=== PATIENT | male | born 1955 | race Caucasian/White ===

== ENCOUNTER 2020-04-20 02:42 | Inpatient (IN) | payer OTHER ==
[~2020-04-20] VITALS: Ht 180.3 cm; Wt 74.8 kg
[2020-04-20 02:53] VITALS: BP 131/65
[2020-04-20 03:04] LABS: ABSOLUTE BASOPHILS 0.1 thou/uL (0.0-0.2); ABSOLUTE EOSINOPHILS 0.1 thou/uL (0.0-0.7); ABSOLUTE LYMPHOCYTES 1.5 thou/uL (0.8-5.3); ABSOLUTE MONOCYTES 1.1 thou/uL (0.0-1.2); ABSOLUTE NEUTROPHILS 13.2 thou/uL (1.6-8.1); BASOPHILS 0.6 %; EOSINOPHILS 0.9 %; HEMATOCRIT 45.4 % (42.0-52.0); HEMOGLOBIN 15.2 gm/dL (14.0-18.0); LYMPHOCYTES 9.6 %; MCH 32.7 pg (26.0-34.0); MCHC 33.6 g/dL (28.0-37.0); MCV 97.6 fL (80.0-100.0); MONOCYTES 6.8 %; MPV 8.8 fl. (7.2-11.1); NUCLEATED RBCS 0 /100WBC; PLATELET COUNT* 248 thou/uL (150-400); POLYS 82.1 %; RBC 4.65 mil/uL (4.50-6.00); RDW-CV 13.5 % (10.5-14.5)
[2020-04-20 03:12] LABS: CALCIUM 9.7 mg/dL (8.5-10.1); CREATININE 1.4 mg/dL (0.6-1.3); POTASSIUM 4.3 mmol/L (3.5-5.1)
[2020-04-20 03:17] LABS: ALBUMIN 4.2 g/dL (3.4-5.0); TOTAL BILIRUBIN 0.5 mg/dL (<0.1-1.0); TOTAL PROTEIN 8.2 g/dL (6.4-8.2)
[2020-04-20 04:50] LABS: URINE BILIRUBIN NEGATIVE (Negative); URINE BLOOD TRACE (Negative); URINE CLARITY CLEAR; URINE COLOR YELLOW; URINE GLUCOSE-RANDOM NEGATIVE (Negative); URINE KETONES TRACE (Negative); URINE LEUKOCYTES-REFLEX NEGATIVE (Negative); URINE NITRITE-REFLEX NEGATIVE (Negative); URINE PROTEIN NEGATIVE (Negative); URINE SPECIFIC GRAVITY <= 1.005 (1.005-1.030)
[2020-04-20 09:37] VITALS: BP 94/49
[2020-04-20 10:20] VITALS: BP 94/49
--- NOTE | 2020-04-21 17:50 | EKG ---
[place] [id number] ELECTROCARDIOGRAM REPORT Name: LOU KELLY Room: [address] IN [facility]#: [id number] Admission: 04/20/20 Attend Phys: Anjel Mccartney Discharge: 04/20/20 Date of : 57 Date of Service: 04/20/20 0251 Report #: [id number] THIS REPORT FOR: //name// [facility] ED Test Date: 2020-04-20 Test Time: 02:51:08 Pat Name: LOU KELLY Department: Room: [facility] Gender: M Hr Intern: NORMA : 1955 Requested By: Steven Jenkins Order Number: [id number] MD: Young Grijalva Measurements Intervals [place] Rate: 73 P: 47 [place]: 159 QRS: 42 QRSD: 90 T: 54 QT: 375 QTc: 414 Interpretive Statements Sinus rhythm Borderline low voltage, extremity leads No previous ECG available for comparison Electronically Signed On 04-21-2020 17:50:46 CDT by Young Grijalva [email or web address] <ELECTRONICALLY SIGNED> By: Young Grijalva MD, FACC 04/21/20 1750 025 0 Young Grijalva MD, [facility] /EPI
== END 2020-04-20 10:24 | disposition left against medical advice (07) | DRG 388 ==
LOC: M.ERS 02:42 → M.TBA-ER 05:40 → M.ERS 05:40 → M.TBA-ER 05:43
PROVIDERS: Family Medicine; ADMIT Internal Medicine; ATTEND Internal Medicine
DX: K56.609 Unspecified intestinal obstruction, unspecified as to partial versus complete obstruction (principal); N17.0 Acute kidney failure with tubular necrosis; D72.829 Elevated white blood cell count, unspecified; R31.9 Hematuria, unspecified; Z20.828 Contact with and (suspected) exposure to other viral communicable diseases; Z90.49 Acquired absence of other specified parts of digestive tract

== ENCOUNTER 2020-04-25 13:53 | Emergency (ER) | payer OTHER ==
[~2020-04-25] VITALS: Ht 180.3 cm; Wt 74.8 kg
[2020-04-25 14:09] LABS: URINE BILIRUBIN NEGATIVE (Negative); URINE BLOOD TRACE (Negative); URINE CLARITY CLEAR; URINE COLOR YELLOW; URINE GLUCOSE-RANDOM NEGATIVE (Negative); URINE KETONES 1+ (Negative); URINE LEUKOCYTES-REFLEX NEGATIVE (Negative); URINE NITRITE-REFLEX NEGATIVE (Negative); URINE PROTEIN NEGATIVE (Negative); URINE SPECIFIC GRAVITY >= 1.030 (1.005-1.030); URINE UROBILINOGEN 0.2 E.U./dl (0.2-1.0)
[2020-04-25 14:22] LABS: ABSOLUTE BASOPHILS 0.1 thou/uL (0.0-0.2); ABSOLUTE EOSINOPHILS 0.3 thou/uL (0.0-0.7); ABSOLUTE LYMPHOCYTES 2.3 thou/uL (0.8-5.3); ABSOLUTE MONOCYTES 0.8 thou/uL (0.0-1.2); ABSOLUTE NEUTROPHILS 2.8 thou/uL (1.6-8.1); BASOPHILS 0.9 %; HEMATOCRIT 39.4 % (42.0-52.0); HEMOGLOBIN 13.5 gm/dL (14.0-18.0); LYMPHOCYTES 36.1 %; MCH 33.6 pg (26.0-34.0); MCHC 34.1 g/dL (28.0-37.0); MCV 98.5 fL (80.0-100.0); MPV 8.6 fl. (7.2-11.1); NUCLEATED RBCS 0 /100WBC; PLATELET COUNT* 213 thou/uL (150-400); RDW-CV 13.4 % (10.5-14.5); WBC 6.3 thou/uL (4.0-11.0)
[2020-04-25 14:32] LABS: CALCIUM 8.7 mg/dL (8.5-10.1); POTASSIUM 3.5 mmol/L (3.5-5.1)
[2020-04-25 14:36] LABS: ALBUMIN 3.9 g/dL (3.4-5.0); TOTAL BILIRUBIN 0.7 mg/dL (<0.1-1.0); TOTAL PROTEIN 7.3 g/dL (6.4-8.2)
[2020-04-25 15:35] VITALS: BP 93/55
--- NOTE | 2020-04-25 17:46 | EKG ---
[place] [address] ELECTROCARDIOGRAM REPORT Name: LOU KELLY Room: [facility]#: [id number] Admission: 04/25/20 Attend Phys: Discharge: 04/25/20 Date of : 57 Date of Service: 04/25/20 1411 Report #: [id number] THIS REPORT FOR: //name// [facility] ED Test Date: 2020-04-25 Test Time: 14:11:22 Pat Name: LOU KELLY Department: Room: Gender: Study Coordinator: : 1955 Requested By: Steven Jenkins Order Number: [id number] MD: Young Grijalva Measurements Intervals [place] Rate: 61 P: 38 [place]: 156 QRS: 34 QRSD: 100 T: 31 QT: 409 QTc: 412 Interpretive Statements Sinus rhythm Low voltage, precordial leads Compared to ECG 04/20/2020 02:51:08 No significant changes Electronically Signed On 04-25-2020 17:46:36 CDT by Young Grijalva [email or web address] <ELECTRONICALLY SIGNED> By: Young Grijalva MD, FACC 04/25/20 1746 1411 141 Young Grijalva MD, [facility] /EPI
== END 2020-04-25 15:35 | disposition home or self-care (01) ==
LOC: M.ERS 13:53
PROVIDERS: Family Medicine
DX: R10.84 Generalized abdominal pain (principal); Z20.828 Contact with and (suspected) exposure to other viral communicable diseases; Z90.49 Acquired absence of other specified parts of digestive tract